=== PATIENT | female | born 1945 | race Caucasian/White ===

== ENCOUNTER 2016-11-22 12:04 | Emergency (ER) | payer MEDICARE ==
[~2016-11-22] VITALS: Ht 167.6 cm; Wt 84.1 kg
[~2016-11-22 12:04] MED LIST: ACET250T4 PO; BIMA2.5D5 OP; BRIM5DRO2 OP; DORZ1DRO5 OP; FUR20 PO; GLPZ5T PO; LISI10TA2 PO; LOVA20TA PO; METF10002 PO; SERT50TA9 PO
[2016-11-22 12:08] VITALS: BP 159/84; PULSE 101; RESP 16; O2SAT 99
--- NOTE | 2016-11-22 13:50 | ED.REPORT ---
HPI-Extremity Problem Lower Date of Service Nov 22, 2016 ED Provider: Doc,Ed MD The patient is a 71 year old female with history of diabetes mellitus, hypertension, and hyperlipidemia, who presents to the emergency department complaining of a laceration to her left foot. The patient states she was cutting her toe nails and accidentally cut into the skin. She was concerned about the amount of bleeding. She denies any other injuries or trauma. Nursing Notes Stated Complaint: LACAERATION ON LEFT FOOT Chief Complaint: Laceration Nursing Notes Reviewed: Yes Allergies: Coded Allergies: Penicillins (Verified Allergy, Unknown, 11/22/16) Scheduled Acetazolamide (Acetazolamide) 250 Mg Tablet 250 MG PO bid x 10 day Bimatoprost (Lumigan) 45 Drop/2.5 Ml Ophsoln 45 DROP OP HS Dorzolamide/Timolol/Pf (Cosopt Pf Eye Drops) 1 Each Droperette 1 EACH OP BID Furosemide (Furosemide) 20 Mg Tab 20 MG PO DAILY Glipizide (Glipizide) 5 Mg Tablet 5 MG PO DAILY Glipizide (Glipizide) 5 Mg Tablet 2.5 MG PO HS Lisinopril (Lisinopril) 10 Mg Tablet 10 MG PO DAILY Lovastatin (Lovastatin) 20 Mg Tablet 20 MG PO HS Metformin (Metformin) 1,000 Mg Tablet 1,000 MG PO BID Sertraline HCl (Sertraline) 50 Mg Tablet 50 MG PO DAILY Miscellaneous Medications Brimonidine Tartrate (Alphagan P) 5 Ml Drops 5 ML OP General Time Seen by MD: 13:49 Chief Complaint Foot injury left Hx Obtained From: Patient Arrived By: Walk-in Onset Occurred: 1 - 4 hours ago Symptom Duration: Since onset Location: : Foot left Quality: Painful Severity: Current: Mild Severity: Maximum: Mild Recent Healthcare: No recent doctor visit, No recent hospitalization Similar Sx Previous: No Past Medical History Past Medical History Glaucoma Reports: Diabetes mellitus, Hyperlipidemia, Hypertension Past Surgical History Removing fluid off eyes for h/o glaucoma Reports: Cholecystectomy Family History Noncontributory Smoking History Unknown if Ever Smoker Social History Other Social History: Lives alone, Local resident Ambulatory Status Independent Review of Systems Review of Systems Note: +laceration to her left foot Musculoskeletal: Reports: Extremity pain Complete sys rev & neg: except as marked. Physical Exam Initial Vital Signs Vital Signs (First) Date Time Temp Pulse Resp B/P Pulse Ox O2 Delivery O2 Flow Rate FiO2 11/22/16 12:08 36.3 101 16 159/84 99 Room Air Initial VS: Reviewed Head / Eyes: Atraumatic, Normocephalic, PERRL ENT: Mucous membranes moist, Conjunctiva normal, No scleral icterus Neck: Supple, Non-tender, Full range of motion Respiratory: No respiratory distress Upper Extremities: Vascular intact, Neuro intact, No swelling, No tenderness Skin: Warm, Dry, No cyanosis Neurologic: Alert, Oriented, Nonfocal Psychiatric: Mood/affect normal, Behavior normal, Normal thought content Lower Extremity / Pelvis / MS: Neurologic intact, Vascular intact Ankle / Foot: Neurologic intact, Vascular intact LEFT FOOT: She has an avulsion injury to the tip of the 4th and 5th toes, matching the description of having cut the toenails off. General/Constitutional: Awake, Alert Re-Eval/Medical Decision Source of Hx: Old records Re-Evaluation/Progress : Time of Eval: 13:57 Re-Evaluation/Progress Note: Washed the wound, discussed plan for dressing and discharge. All questions were addressed. Counseled Regarding: Diagnosis, Need for follow-up, When/why to return to ED Discharge & Departure Impression: Primary Impression: Injury of toenail of left foot Encounter type: initial encounter Qualified Code: S99.922A - Unspecified injury of left foot, initial encounter Disposition: Home Discharge Condition All VS Reviewed: Yes Condition: Stable Additional Instructions: Thank you for entrusting us with your care today. The bleeding is controlled and we applied a dressing. Keep the area clean and dry. If it starts bleeding again you should apply direct pressure for 10-15 minutes. If you are still unable to control the bleeding you should be seen again. Try not to rub the area , just pat dry. Seek care for any signs of infection, or any other new or concerning symptoms. Referrals: Gali Mchugh MD (PCP) Scribe Attestation Portions of this note were transcribed by Debbie Calderon. I, Dr. Hdz personally performed the history, physical exam and medical decision-making; I reviewed and confirmed the accuracy of the information in the transcribed note. Signed by: Jose Beckett, 11/22/2016 at 1430. copies to: Gali Mchugh MD, Kirk H MD Nov 22, 2016 13:50 Kvng,Debbie Carey Nov 22, 2016 13:58
== END 2016-11-22 14:41 | disposition home or self-care (01) ==
LOC: SED 12:04
DX: S91.205A Unspecified open wound of left lesser toe(s) with damage to nail, initial encounter (principal); W45.8XXA Other foreign body or object entering through skin, initial encounter; Y93.89 Activity, other specified; Y92.89 Other specified places as the place of occurrence of the external cause; Y99.8 Other external cause status; I10 Essential (primary) hypertension; E11.9 Type 2 diabetes mellitus without complications; E78.5 Hyperlipidemia, unspecified; H40.9 Unspecified glaucoma; Z79.84 Long term (current) use of oral hypoglycemic drugs; Z88.0 Allergy status to penicillin